=== PATIENT | male | born 1940 | race Caucasian/White ===

== ENCOUNTER 2021-11-14 05:51 | Day surgery (SDCO) | payer MEDICARE ==
[~2021-11-14] VITALS: Ht 170.2 cm; Wt 69.1 kg
[2021-11-14 06:42] LABS: INR 1.11 (0.9-1.2); PROTHROMBIN TIME 13.7 SECONDS (11.8-13.4); PTT 32.3 SECONDS (24.4-34.7)
[2021-11-14 06:43] LABS: D-DIMER 0.42 ug/mLFEU (0.00-0.41)
[2021-11-14 06:48] LABS: BASOPHIL 0.5 % (0-2); EOSINOPHIL 1.3 % (0-7); HCT 55.6 % (42.0-52.0); HGB 17.6 g/dl (13.2-18.0); LYMPHOCYTE 18.1 % (15-48); MCH 30.4 pg (25.0-31.0); MCHC 31.7 g/dL (32.0-36.0); MCV 96.2 fL (78.0-100.0); MONOCYTE 10.8 % (0-12); MPV 11.1 fL (6.0-9.5); NEUTROPHIL 68.9 % (41-80); NRBC 0; PLT 155 K/uL (150-400); RBC 5.78 M/uL (4.70-6.00); RDW 13.2 % (11.5-14.0); WBC 9.6 K/uL (4.0-10.5)
[2021-11-14 06:59] LABS: CORONAVIRUS 2019 SARS-COV-2 NEGATIVE (NEGATIVE); INFLUENZA A NAA NEGATIVE (NEGATIVE)
[2021-11-14 07:09] LABS: ALBUMIN 3.4 g/dL (3.4-5.0); BILIRUBIN - TOTAL 0.4 mg/dL (0.2-1.0); BUN/CREAT RATIO (CALC) 17.7 RATIO; CREATININE 1.13 mg/dL (0.67-1.17); GLOBULIN (CALCULATION) 3.8 g/dL; MAGNESIUM 1.8 mg/dL (1.8-2.4); POTASSIUM 3.9 mmol/L (3.5-5.1); TOTAL PROTEIN 7.2 g/dL (6.4-8.2)
[2021-11-14 07:21] LABS: LACTIC ACID 1.1 mmol/L (0.4-1.9)
[2021-11-14] MEDS ORDERED: LASIX20 MG PO (13:57)
[2021-11-14] MEDS ORDERED: ASPIRIN EC81 MG PO (13:58)
[2021-11-14] MEDS ORDERED: PRINIVIL10 MG PO (13:58)
[2021-11-14 15:04] LABS: INR 1.24 (0.9-1.2); PROTHROMBIN TIME 14.9 SECONDS (11.8-13.4)
[2021-11-14 15:05] LABS: PTT 65.2 SECONDS (24.4-34.7)
--- NOTE | 2021-11-14 18:30 | NUR ---
VERBAL ORDER TO GIVE LOVENOX INJECTION TIME AND DC HEPARIN DRIP AT THIS TIME.
[2021-11-15 03:52] LABS: BASOPHIL 0.2 % (0-2); EOSINOPHIL 0 % (0-7); HCT 46.3 % (42.0-52.0); HGB 14.6 g/dl (13.2-18.0); LYMPHOCYTE 6.5 % (15-48); MCH 30.2 pg (25.0-31.0); MCHC 31.5 g/dL (32.0-36.0); MCV 95.7 fL (78.0-100.0); MONOCYTE 7.6 % (0-12); NEUTROPHIL 85.2 % (41-80); NRBC 0; PLT 156 K/uL (150-400); RBC 4.84 M/uL (4.70-6.00); WBC 11.5 K/uL (4.0-10.5)
[2021-11-15 04:14] LABS: BUN/CREAT RATIO (CALC) 22.2 RATIO; CREATININE 1.08 mg/dL (0.67-1.17); MAGNESIUM 1.7 mg/dL (1.8-2.4); POTASSIUM 3.7 mmol/L (3.5-5.1)
[2021-11-15 04:17] LABS: INR 1.22 (0.9-1.2); PROTHROMBIN TIME 14.8 SECONDS (11.8-13.4)
[2021-11-15 04:18] LABS: PTT 41.3 SECONDS (24.4-34.7)
[2021-11-15 11:28] LABS: CHOLESTEROL 126 mg/dL (<200); HDL 48 mg/dL (40-60); LDL - DIRECT 73 mg/dL (<100); TRIGLYCERIDES 102 mg/dL (<150)
[2021-11-15] MEDS ORDERED: NITROQUIK SL0.4 MG SL (15:08)
--- NOTE | 2021-11-15 15:08 | NUR ---
11/15/21 A referral was made to [facility] for 02 at 2 L.
[2021-11-15] MEDS ORDERED: DULERA 200 MCG8.8 GM INH (15:46)
== END 2021-11-15 16:05 | disposition home or self-care (01) ==
LOC: FER 05:51 → FTCU 09:31
PROVIDERS: Emergency Medicine; ADMIT Internal Medicine
DX: R07.89 Other chest pain (principal); J44.9 Chronic obstructive pulmonary disease, unspecified; J96.91 Respiratory failure, unspecified with hypoxia; I11.0 Hypertensive heart disease with heart failure; I50.9 Heart failure, unspecified; Z72.0 Tobacco use; Z20.822 Contact with and (suspected) exposure to COVID-19; Z79.82 Long term (current) use of aspirin
CPT/HCPCS: 36415; 71045; 71046; 80048; 80053; 80061; 83605; 83735; 83880; 84145; 84443; 84484; 85025; 85379; 85610; 85730; 93005; 94010; 94640; G0378; J1644; J1650; J1940; J2930; J7040; U0002